=== PATIENT | male | born 1955 | race Caucasian/White ===

== ENCOUNTER → 2021-03-14 14:04 | Outpatient (CLI) | payer BC, SELFPAY ==
[2021-03-14 16:07] LABS: Alanine Aminotransferase 40 U/L (12-78); Albumin Level 4.4 g/dl (3.5-5.0); Albumin/Globulin Ratio 1.5 (1.1-1.8); Alkaline Phosphatase 95 U/L (38-126); Anion Gap 9.9 mEq/L (5-15); Aspartate Amino Transferase 54 U/L (17-59); Bilirubin,Total 0.3 mg/dl (0.2-1.3); Blood Urea Nitrogen 11 mg/dl (9-20); Calcium 9.7 mg/dl (8.4-10.2); Carbon Dioxide 33 mmol/L (22.0-30.0); Chloride 94 mmol/L (98-107); Estimated Glomerular Filt Rate 136 ml/min (>60); GFR (African American) 165 ML/MIN (>60); Globulin 2.9 g/dL (1.3-3.2); Glucose 95 mg/dl (74-100); Potassium 4.9 mmoL/L (3.5-5.1); Sodium 132 mmol/L (136-145); Total Protein,Serum 7.3 g/dl (6.3-8.2)
[2021-03-14 16:39] LABS: Prostate Specific Ag Screen 0.4 ng/ml (0.0-4.0); Thyroid Stimulating Hormone 0.52 uIU/mL (0.465-4.68)
== END ==
PROVIDERS: Visit Provider Nurse Practitioner
DX: R35.0 Frequency of micturition (principal)
CPT/HCPCS: 36415; 80053; 84443; G0103

== ENCOUNTER → 2021-03-17 09:28 | Outpatient (CLI) | payer BC, SELFPAY ==
--- NOTE | 2021-03-17 09:35 | CT_ITS ---
FINAL REPORT TECHNIQUE: Pre-and postcontrast axial CT images of the abdomen and pelvis were obtained. Coronal reformatted images were also obtained and reviewed.This study was performed with techniques to keep radiation doses as low as reasonably achievable (ALARA). Individualized dose reduction techniques using automated exposure control or adjustment of mA and/or kV according to the patient''''s size were employed. CLINICAL HISTORY: HEMATURIA frequent voiding FINDINGS: CT OF THE ABDOMEN AND PELVIS WITH AND WITHOUT CONTRAST Abdomen: There is scarring at the left lung base. Lung bases are otherwise clear.. The heart is normal in size. The liver has an unremarkable appearance, without evidence of mass or biliary ductal dilatation. Gallbladder is present. The spleen is unremarkable. No adrenal mass is present. The pancreas has an unremarkable appearance. The kidneys are normal, without evidence of mass or hydronephrosis. The aorta is normal in caliber. There is no free fluid or adenopathy. No mass or abnormal fluid collection is seen. Pelvis: The appendix is normal. The urinary bladder is unremarkable. No inflammatory process is seen. There is no evidence of mass or adenopathy. There is no evidence of bowel obstruction. There is dense calcification of the abdominal aorta and iliac vessels. Precontrast imaging demonstrates no evidence of nephrolithiasis. IMPRESSION: No evidence of acute intra-abdominal process. Reviewed, Interpreted and Dictated by Lavelle Danielle MD Transcribed by Gayle Bernardo Authenticated by Lavelle Danielle MD on 03/17/2021 12:18:11 PM [facility]
== END ==
PROVIDERS: PCP Nurse Practitioner; Visit Provider Nurse Practitioner
DX: R31.9 Hematuria, unspecified (principal)
CPT/HCPCS: 74178; Q9967

== ENCOUNTER → 2021-11-19 15:40 | Outpatient (CLI) | payer BC, SELFPAY ==
[2021-11-19 18:37] LABS: Basophils # 0.1 K/mm3 (0-0.2); Basophils % 0.8 % (0.1-2.0); Eosinophils # 0.1 K/mm3 (0.0-0.4); Eosinophils % 0.9 % (0.1-12.0); Hematocrit 41.4 % (42.0-52.0); Hemoglobin 13.2 g/dL (14.1-18.0); Lymphocytes # 0.7 K/mm3 (0.7-4.5); Lymphocytes % 7.4 % (10-50); Mean Corpuscular HGB Conc 31.8 g/dL (31.8-35.4); Mean Corpuscular Hemoglobin 33.1 pg (27.0-31.2); Mean Corpuscular Volume 103.9 fl (80-94); Mean Platelet Volume 8.1 fl (7.4-10.4); Monocytes # 0.8 K/mm3 (0.1-1.0); Monocytes % 8.8 % (1.7-9.3); Neutrophils # 7.9 K/mm3 (1.8-7.8); Neutrophils % 82.1 % (37.0-80.0); Platelet Count 412 K/mm3 (142-424); Red Blood Count 3.98 M/mm3 (4.60-6.20); Red Cell Distribution Width 12.7 % (11.5-17.5); White Blood Count 9.6 K/mm3 (4.8-10.8)
[2021-11-19 18:57] LABS: Alanine Aminotransferase 25 U/L (12-78); Albumin Level 3.9 g/dl (3.5-5.0); Albumin/Globulin Ratio 1.3 (1.1-1.8); Alkaline Phosphatase 128 U/L (38-126); Anion Gap 11.7 mEq/L (5-15); Aspartate Amino Transferase 40 U/L (17-59); Bilirubin,Total < 0.1 mg/dl (0.2-1.3); Blood Urea Nitrogen 12 mg/dl (9-20); Calcium 9.1 mg/dl (8.4-10.2); Carbon Dioxide 32 mmol/L (22.0-30.0); Chloride 97 mmol/L (98-107); Estimated Glomerular Filt Rate 85 ml/min (>60); GFR (African American) 103 ML/MIN (>60); Glucose 105 mg/dl (74-100); Potassium 4.7 mmoL/L (3.5-5.1); Sodium 136 mmol/L (136-145); Total Protein,Serum 6.9 g/dl (6.3-8.2)
== END ==
PROVIDERS: PCP Nurse Practitioner; Visit Provider Nurse Practitioner
DX: I10 Essential (primary) hypertension (principal)
CPT/HCPCS: 80053; 85025

== ENCOUNTER 2022-03-14 15:48 | Emergency (ER) | payer BC, SELFPAY ==
--- NOTE | 2022-03-14 15:50 | PC.NURSE ---
1546- pt arrived to ED with cpr in progress -ems reports pt was a witnessed arrest. when ems arrived pt was in vfib --> asystole -ems reports giving 300mg of amiodarone and 6mg of epinephrine in route to ed -ems reports delivering 3 shocks to patient in route to ed. 1548- 1mg epi given 1549- IVF started 1550- pulse check; asystole 1551- 1mg of epi given 1552- pulse check; asystole 1554- TOD
--- NOTE | 2022-03-14 15:56 | HMH.EDGENADL ---
Discharge Plan Disposition Patient Disposition: Prescriptions Prescriptions: No Action ibuprofen 200 mg tablet 200 mg PO Q6H PRN lisinopril-hydrochlorothiazide 10-12.5 mg tablet 0.5 tab PO DAILY Qty: 15 5RF Referrals Follow up/Referrals: Lucrecia Elizalde APRN [Primary Care Provider] - See instructions Clinical Impressions Clinical Impression: Cardiopulmonary arrest Discharge ED Provider: Pio Cadena Adult HPI General Stated complaint: cardiac arrest Time Seen by Provider: 03/14/22 15:56 Mode of Arrival: EMS Source of Information: EMS Limitations: clinical condition History of Present Illness HPI narrative: 66yo M arrives to the emergency department EMS CPR in progress. Witnessed arrest. EMS states patient was in V. fib on arrival. Defibrillated multiple times. Asystole after multiple defibrillations. 6 rounds of epi and 1 bicarb prior to arrival. Asystole for at least 20 minutes. Intubated in the field. No history provided by family to EMS prior to transport. Related Data Home Medications Medication Instructions Recorded Confirmed ibuprofen 200 mg tablet 200 mg PO Q6H PRN 04/08/21 11/19/21 Previous Rx's Medication Instructions Recorded lisinopril 10 0.5 tab PO DAILY #15 tabs 11/19/21 mg-hydrochlorothiazide 12.5 mg tablet Allergies Allergy/AdvReac Type Severity Reaction Status Date / Time Penicillins AdvReac Verified 11/19/21 15:34 [facility] Disclaimer: The information contained in this section may have been updated after the patient was seen, as this information can be updated by other users. Medical History BPH loc w urin obs/LUTS Social History Smoking Status: Current every day smoker alcohol intake: current substance use type: denies use current occupational status: other Travel in the last 8 weeks: None household members: spouse housing: house ROS Obtained: Yes unobtainable due to endotracheal tube Physical Exam General General appearance: other (CPR in progress) Comment: CPR in progress Head Head exam: atraumatic Neck Neck exam: Present normal inspection Chest Chest inspection: Present normal inspection Respiratory Respiratory exam: Present respiratory distress and other (No spontaneous respiratory effort) Cardiovascular Cardiovascular exam: Present other (Asystole) Abdominal Exam Abdominal exam: Present soft Extremities Exam Extremities exam: Absent edema or joint swelling Neurological Exam Neurological exam: Absent alert Skin Skin exam: Present warm, dry and intact Medical Decision Making Medical Records Medical records reviewed: Yes I reviewed the patient's medical records. Norm Inquiry Pt receiving controlled substance: No Norm was queried for this patient: No Medical Decision Narrative: Philip on66yo M evaluated on arrival from EMS. Asystole on arrival. Intubated prior to arrival. Monitor. Provided additional epinephrine per ACLS protocol. No improvement in condition. Patient has bilateral breath sounds. Glucose was 92 per EMS. Patient has been in asystole for over 30 minutes. Efforts discontinued at 1554. Critical Care Time Critical Care Time Critical Care Time: No Attestation: On 03/14/22, the high probability of a clinically significant, sudden or life threatening deterioration of the following system(s) required my full and direct attention, intervention and personal management. The time I documented below is in addition to time spent performing reported procedures but includes the following listed in this critical care notation.
[2022-03-14 16:10] VITALS: BMI 22.9
--- NOTE | 2022-03-14 17:00 | PC.NURSE ---
spoke with mera hatfield from [facility] who has not yet released the body to the home. states they will call back with final decision.
--- NOTE | 2022-03-14 18:57 | PC.NURSE ---
[facility] ruled pt out for organ donation
--- NOTE | 2022-03-14 19:00 | PC.NURSE ---
calling [facility]
[2022-03-14 19:57] VITALS: BP 0/0; PULSE 0; RESP 0; TEMP -17.7; TEMP 0
== END 2022-03-14 19:58 | disposition expired ==
PROVIDERS: Emergency Provider Family Medicine; PCP Nurse Practitioner
DX: I46.9 Cardiac arrest, cause unspecified (principal); F17.210 Nicotine dependence, cigarettes, uncomplicated; N40.1 Benign prostatic hyperplasia with lower urinary tract symptoms
CPT/HCPCS: 92950; 99285